=== PATIENT | female | born 1960 | race Caucasian/White ===

== ENCOUNTER 2016-12-20 10:30 | Emergency (ER) | payer OTHER ==
[~2016-12-20] VITALS: Ht 157.5 cm; Wt 67.5 kg
[~2016-12-20 10:30] MED LIST: ACET500C5 PO; ATOR20TA38 PO; BENA5TAB2 PO; CIPR500T4 PO; HYDR-902 PO; IBUP-1542 PO; METF-382 PO; ONDA4TAB14 PO
[2016-12-20 10:39] VITALS: Ht 157.5 cm; Wt 67.5 kg
[2016-12-20] MEDS ORDERED: SOD CHLORIDE 0.9% 1,000 ML IV STA (12:08)
[2016-12-20] MEDS ORDERED: morphine 4 MG/ML VIAL IV STA (12:08)
[2016-12-20] MEDS ORDERED: ONDANSETRON 4 MG INJ IV STA (12:08)
--- NOTE | 2016-12-20 12:14 | ERD ---
ER Documentation Chief Complaint Date/Time DATE: 12/20/16 TIME: 12:10 Chief Complaint RUQ PAIN RADIATING TO BACK X2 WKS, GETTING WORSE HPI She is a 56-year-old female who presents complaining of right flank pain that is now radiating to her abdomen for the last 2 weeks. She states the pain has increased over the last 3 days. She has never experienced this pain before. Movement increases the pain and rest helps the pain. She denies any trauma, fever, nausea, vomiting, dysuria, hematuria, diarrhea. She denies any rashes, abnormal bleeding, bruises, coughing, congestion, chest pain, or shortness of breath. In the remainder of the systems are negative. ROS All systems reviewed and are negative except as per history of present illness. Medications Home Meds Reported Medications Atorvastatin Calcium* (Atorvastatin Calcium*) 20 Mg Tablet, 20 MG PO QHS, #30 TAB 05/25/16 Metformin Hcl* (Metformin Hcl*) 500 Mg Tablet, 500 MG PO WITH BREAKFAST, #30 TAB 05/25/16 Benazepril Hcl* (Benazepril Hcl*) 5 Mg Tablet, 5 MG PO DAILY, #30 TAB 05/25/16 Discontinued Scripts Ibuprofen* (Motrin*) 600 Mg Tab, 600 MG PO Q8 for 10 Days, #30 TAB 0 Refills Prov:BRIEN CLARK PA-C 08/20/16 Acetaminophen* (Tylophen*) 500 Mg Capsule, 1 CAP PO Q6H Y for PAIN AND OR ELEVATED TEMP, #30 CAP 0 Refills Prov:BRIEN CLARK PA-C 08/20/16 Ciprofloxacin Hcl* (Ciprofloxacin Hcl*) 500 Mg Tablet, 500 MG PO BID for 3 Days , TAB Prov:RADHA DICKENS MD 05/25/16 Ondansetron (Ondansetron Odt) 4 Mg Tab.rapdis, 4 MG PO Q6H Y for NAUSEA AND/OR VOMITING, #30 TAB Prov:RADHA DICKENS MD 05/25/16 Hydrocodone/Acetaminophen ([place] 10-325 Tablet) 1 Each Tablet, 1 TAB PO Q6H Y for PAIN, #7 TAB Prov:RADHA DICKENS MD 05/25/16 Allergies Allergies: Coded Allergies: No Known Allergy (Verified , 12/20/16) PMhx/Soc Anesthesia Reaction: No Hx Neurological Disorder: No Hx Respiratory Disorders: No Hx Cardiac Disorders: Yes (HIGH CHOLESTEROL, HTN) Hx Psychiatric Problems: No Hx Miscellaneous Medical Probl: Yes (dm, blood transfusion) Hx Alcohol Use: No Hx Substance Use: No Hx Tobacco Use: No Smoking Status: Never smoker Physical Exam Vitals Vital Signs Date Time Temp Pulse Resp B/P Pulse Ox O2 Delivery O2 Flow Rate FiO2 12/20/16 10:39 97.5 96 20 195/88 99 Physical Exam Const: [] Well-developed well-nourished female who looks like she is uncomfortable. Head: Atraumatic normocephalic Neck: Full range of motion..~ No meningismus. Resp: Clear to auscultation bilaterally Cardio: Regular rate and rhythm, no murmurs Abd: Soft, mild tenderness to palpation in the right lower quadrant with no masses, rebound, or guarding, audible bowel sounds Skin: No petechiae or rashes Back: No midline tenderness to palpation, moderate right flank pain Ext: No cyanosis, or edema Neur: Awake and alert, oriented 3, GCS of 15, moves all extremities equally Psych: Normal Mood and Affect Result Diagram: 12/20/16 1220 12/20/16 1220 Results 24 hrs Laboratory Tests Test 12/20/16 12:20 White Blood Count 5.010^3/ul Red Blood Count 4.8810^6/ul Hemoglobin 15.9g/dl Hematocrit 44.3% Mean Corpuscular Volume 90.8fl Mean Corpuscular Hemoglobin 32.6pg Mean Corpuscular Hemoglobin Concent 35.9g/dl Red Cell Distribution Width 12.2% Platelet Count 05946^3/UL Mean Platelet Volume 9.8fl Neutrophils % 48.3% Lymphocytes % 42.9% Monocytes % 6.0% Eosinophils % 2.0% Basophils % 0.4% Nucleated Red Blood Cells % 0.0/100WBC Neutrophils # 2.410^3/ul Lymphocytes # 2.210^3/ul Monocytes # 0.310^3/ul Eosinophils # 0.110^3/ul Basophils # 0.010^3/ul Nucleated Red Blood Cells # 0.010^3/ul Urine Color LT. YELLOW Urine Clarity CLEAR Urine pH 5.0 Urine Specific [place] 1.020 Urine Ketones NEGATIVE Urine Nitrite NEGATIVE Urine Bilirubin NEGATIVE Urine Urobilinogen 0.2 E.U./dL Urine Leukocyte Esterase 1+ Urine Microscopic RBC 0-2/HPF Urine Microscopic WBC 0-2/HPF Urine Epithelial Cells FEW Urine Bacteria MODERATE Urine Hemoglobin NEGATIVE Urine Glucose 0.5%% Urine Total Protein NEGATIVE Sodium Level 137mmol/L Potassium Level 3.8mmol/L Chloride Level 102mmol/L Carbon Dioxide Level 23mmol/L Anion Gap 16 Blood Urea Nitrogen 10mg/dl Creatinine 0.49mg/dl Glucose Level 165mg/dl Calcium Level 9.4mg/dl Total Bilirubin 0.3mg/dl Direct Bilirubin 0.00mg/dl Indirect Bilirubin 0.3mg/dl Aspartate Amino Transf (AST/SGOT) 42IU/L Alanine Aminotransferase (ALT/SGPT) 39IU/L Alkaline Phosphatase 108IU/L Total Protein 8.2g/dl Albumin 4.8g/dl Globulin 3.40g/dl Albumin/Globulin Ratio 1.41 Lipase 130U/L Current Medications Medications (Trade) Dose Ordered Sig/Elle Route PRN Reason Start Time Stop Time Status Last Admin Dose Admin Sodium Chloride (NS) 1,000 ml @ 1,000 mls/hr Q1H STAT IV 12/20/16 12:08 12/20/16 13:07 DC 12/20/16 12:35 Morphine Sulfate (morphine) 4 mg ONCE STAT IV 12/20/16 12:08 12/20/16 12:09 DC 12/20/16 12:34 Ondansetron HCl 4 mg 4 mg ONCE STAT IV 12/20/16 12:08 12/20/16 12:09 DC 12/20/16 12:34 Ceftriaxone Sodium (Rocephin) 50 ml @ 100 mls/hr ONCE ONCE IVPB 12/20/16 14:00 12/20/16 14:29 12/20/16 14:10 Procedures/MDM Differential includes but is not limited to ureterolithiasis, renal colic, pyelonephritis, urinary tract infection, pancreatitis, appendicitis CT the abdomen pelvis demonstrate calculi within the right kidney but no evidence of ureterolithiasis, appendix is normal, no intra-abdominal process noted. Patient's urine is borderline for urinary tract infection. I have ordered her Rocephin IV. 1423: Patient is stable for discharge home. Her white count is normal, her conference of metabolic panel is normal, her CT of abdomen and pelvis are normal. I will place her on some antibiotics pending her culture of her urine. She has been advised to make a appointment with her primary care physician in follow-up in the next 24-48 hours for recheck. Or return to the emergency department for any new or worsening symptoms. Departure Diagnosis: Primary Impression: Urinary tract infection Urinary tract infection type: acute cystitis Hematuria presence: without hematuria Qualified Code: N30.00 - Acute cystitis without hematuria Additional Impressions: Right flank pain Abdominal pain Abdominal location: right lower quadrant Qualified Code: R10.31 - Right lower quadrant abdominal pain Condition: Good Patient Instructions: Understanding Urinary Tract Infections (UTIs) Additional Instructions: Take all the antibiotics as prescribed. Drink plenty of fluids to flush out a urinary tract. Schedule an appointment with your primary care physician for recheck in the next 2-3 days. Return to the emergency department for any fever , increasing pain, vomiting, or new or worsening symptoms. BENY SOLARES Dec 20, 2016 12:14
[2016-12-20 12:46] LABS: ADD SCAN DIFF NO
[2016-12-20 12:50] LABS: BASOPHILS % 0.4 % (0.0-2.0); EOSINOPHILS # 0.1 10^3/ul (0.0-0.5); HEMATOCRIT 44.3 % (37.0-47.0); HEMOGLOBIN 15.9 g/dl (12.0-16.0); LYMPHOCYTES # 2.2 10^3/ul (0.8-2.9); LYMPHOCYTES % 42.9 % (15.0-51.0); MEAN CORPUSCULAR HEMOGLOBIN 32.6 pg (29.0-33.0); MEAN CORPUSCULAR HGB CONC 35.9 g/dl (32.0-37.0); MEAN CORPUSCULAR VOLUME 90.8 fl (82.0-101.0); MEAN PLATELET VOLUME 9.8 fl (7.4-10.4); MONOCYTE # 0.3 10^3/ul (0.3-0.9); NEUTROPHIL # 2.4 10^3/ul (1.6-7.5); NEUTROPHILS % 48.3 % (39.0-77.0); PLATELET COUNT 260 10^3/UL (140-415); RED BLOOD COUNT 4.88 10^6/ul (4.20-5.40); RED CELL DISTRIBUTION WIDTH 12.2 % (11.5-14.5)
[2016-12-20 13:02] LABS: ADD UMIC YES; URINE BILIRUBIN (Dip) NEGATIVE (NEGATIVE); URINE BLOOD (Dip) NEGATIVE (NEGATIVE); URINE COLOR LT. YELLOW (YELLOW); URINE KETONES (Dip) NEGATIVE (NEGATIVE); URINE LEUKOCYTE ESTERASE (Dip) 1+ (NEGATIVE); URINE NITRITE (Dip) NEGATIVE (NEGATIVE); URINE TOTAL PROTEIN (Dip) NEGATIVE (NEGATIVE); URINE UROBILINOGEN (Dip) 0.2 E.U./dL (0.1-1.0)
[2016-12-20 13:08] LABS: ALBUMIN 4.8 g/dl (3.3-4.9)
[2016-12-20 13:09] LABS: POTASSIUM 3.8 mmol/L (3.5-5.1)
[2016-12-20 13:11] LABS: ALBUMIN/GLOBULIN RATIO 1.41; BILIRUBIN,INDIRECT 0.3 mg/dl (0-1.1); BILIRUBIN,TOTAL 0.3 mg/dl (0.2-1.3); CREATININE 0.49 mg/dl (0.44-1.00); TOTAL PROTEIN 8.2 g/dl (6.1-8.1)
[2016-12-20 13:12] LABS: CALCIUM 9.4 mg/dl (8.4-10.2)
--- NOTE | 2016-12-20 13:24 | RADRPT ---
PROCEDURE: CT Abdomen and pelvis without contrast. CLINICAL INDICATION: Right upper quadrant pain. TECHNIQUE: CT scan of the abdomen and pelvis without contrast was performed on a multidetector hig h-resolution CT scan. . Coronal and sagittal reformatted images were obtained from the axial [facility] e images. Standard CT scan of the abdomen pelvis without contrast protocols were performed. The total exam CTDI equals 10.59 mGy and the total exam DLP equals 597.7 mGy-cm. One or more of the following dose reduction techniques were used: - Automated exposure control. - Adjustment of the mA and/or kV according to patient size. Use of iterative reconstruction technique. COMPARISON: CT abdomen pelvis 05/25/2016 FINDINGS: The patient status post previous cholecystectomy without evidence of biliary ductal dilation. Again noted are 3 small nonobstructing right renal calcified calculi. No evidence of new urinary calcifi ed calculi. No hydronephrosis bilaterally. No evidence of intra renal masses bilaterally. The jason er spleen pancreas and adrenal glands are normal in size configuration without focal lesions. The u rinary bladder is unremarkable. There are numerous surgical clips in the right adnexal region. The uterus is anteflexed but otherwise unremarkable. No evidence of adnexal masses. No evidence of in tra-abdominal free air, free fluid, abscesses or lymphadenopathy. The stomach, small bowel, large b owel and appendix are unremarkable. There is bibasilar chronic parenchymal lung disease. The lung bases are otherwise unremarkable. The re is coronary artery disease present. There is atherosclerotic vascular disease of the aorta but no evidence of aneurysm or periaortic fluid collections. There are degenerative changes lower thoraci c and lumbar spine. There are no acute osseous findings are osteoblastic/osteolytic lesions. IMPRESSION: 1. Compared to previous CT scan abdomen pelvis 05/25/2016 there is no significant change. 2. 3 unchanged small nonobstructing right renal calculi. No new calcified urinary calculi or hydro nephrosis bilaterally. 3. Negative for intra-abdominal free air, free fluid abscesses or lymphadenopathy. 4. Unremarkable appendix. 5. Status post previous cholecystectomy without evidence of biliary ductal dilation. RPTAT:AAJJ B Jain, Physician Date Time Electronically viewed and signed by Dl Jain Physician on 12/20/2016 13:23 BM/
[2016-12-20 13:26] LABS: BACTERIA,URINE MODERATE; URINE RBCS 0-2 /HPF (0)
[2016-12-20] MEDS ORDERED: CEFTRIAXONE 1 GM/50 ML (PMX) 50 ML IVPB ONE (14:00)
[2016-12-20] MEDS ORDERED: CIPR500T4 PO (14:26)
[2016-12-20] MEDS ORDERED: ONDA4TAB8 PO (14:27)
[2016-12-20] MEDS ORDERED: HYDR-906 PO (14:27)
[2016-12-20 14:52] VITALS: BP 131/89; PULSE 78; RESP 18; TEMP 98
== END 2016-12-20 14:54 | disposition home or self-care (01) ==
LOC: E/R 10:30
DX: N30.00 Acute cystitis without hematuria (principal); R10.31 Right lower quadrant pain; I10 Essential (primary) hypertension; E11.9 Type 2 diabetes mellitus without complications; Z79.84 Long term (current) use of oral hypoglycemic drugs
CPT/HCPCS: 36415; 74176; 80053; 81001; 83690; 85025; 87086; 96374; 96375; J0696; J2270; J2405; J7030; Z7502; 81003

== ENCOUNTER 2017-01-11 19:57 | Emergency (ER) | payer SELFPAY ==
[~2017-01-11] VITALS: Ht 162.6 cm; Wt 64.0 kg
[~2017-01-11 19:57] MED LIST changes: -ACET500C5 PO; -HYDR-902 PO; +HYDR-906 PO; -IBUP-1542 PO; -METF-382 PO; +METF500T4 PO; -ONDA4TAB14 PO; +ONDA4TAB8 PO
[2017-01-11 20:21] VITALS: Ht 162.6 cm; Wt 64.0 kg
== END 2017-01-11 23:38 | disposition left against medical advice (07) ==
LOC: FTE 19:57
DX: Z53.21 Procedure and treatment not carried out due to patient leaving prior to being seen by health care provider (principal)